=== PATIENT | female | born 1965 | race Caucasian/White ===

== ENCOUNTER 2020-08-15 11:04 | Inpatient (IN) ==
[2020-08-15] MEDS ORDERED: Dexamethasone 4 MG/ML VIAL IVP ONE (11:16)
[2020-08-15] MEDS ORDERED: Isovue-370 500 ML BOTTLE IVP ONE (11:16)
[2020-08-15 12:28] LABS: Basophils % 0.3 %; Hematocrit 40.8 % (35.3-44.9); Hemoglobin 13.2 g/dL (11.5-15.4); Immature Granulocytes % 1.1 % (0-4); Lymphocytes # 1.1 K/mcL (0.6-4.6); Lymphocytes % 15.8 %; Mean Corpuscular HGB Conc 32.4 g/dL (31.6-35.5); Mean Corpuscular Hemoglobin 29.4 pg (28.0-33.3); Mean Corpuscular Volume 90.9 fL (83.0-100.0); Mean Platelet Volume 10.9 fL (9.4-12.4); Monocytes # 0.6 K/mcL (0.0-1.3); Monocytes % 8.5 %; Neutrophils # 5.3 K/mcL (1.6-8.9); Platelet Count 170 K/mcL (140-400); Red Blood Count 4.49 M/mcL (3.82-4.97); Red Cell Distribution Width 14.2 % (11.5-14.5); Segmented Neutrophils % 74.3 %; White Blood Count 7.2 K/mcL (4.3-11.1)
[2020-08-15 12:30] LABS: Alanine Aminotransferase 23 Units/L (7-52); Albumin 3.8 g/dL (3.5-5.7); Albumin/Globulin Ratio 1.2 (1.1-2.2); Alkaline Phosphatase 74 Units/L (34-104); Aspartate Amino Transferase 20 Units/L (13-39); BUN/Creatinine Ratio 18 (6-26); Bilirubin,Direct 0.2 mg/dL (0.0-0.2); Bilirubin,Indirect 0.4 mg/dL (0.0-1.0); Bilirubin,Total 0.6 mg/dL (0.3-1.0); Blood Urea Nitrogen 16 mg/dL (6-20); C-Reactive Protein 43 mg/L (Less than 10); Calcium 8.7 mg/dL (8.6-10.3); Carbon Dioxide 30 mEq/L (23-29); Chloride 98 mEq/L (98-107); Globulin 3.3 g/dL (2.4-3.5); Glucose 132 mg/dL (70-105); Lactate Dehydrogenase 244 Units/L (140-271); Magnesium 1.8 mg/dL (1.6-2.6); Osmolality,Calculated 283 (280-300); Phosphorous 1.5 mg/dL (2.7-4.5); Potassium 3.4 mEq/L (3.5-5.1); Sodium 135 mEq/L (136-145); Total Protein 7.1 g/dL (6.4-8.9); Troponin I < 0.03 ng/mL (< 0.04); eGFR For African Americans > 60 (> 60); eGFR For Non-African Americans > 60 (> 60)
[2020-08-15 12:48] LABS: Ferritin 165 ng/mL (10-120)
[2020-08-15 12:50] LABS: INR 1.1; Prothrombin Time 12.3 Seconds (9.4-12.1)
[2020-08-15 12:53] LABS: Activated Partial Thrombo Time 20.7 Seconds (26.0-36.0)
[2020-08-15] MEDS ORDERED: Naloxone 0.4 MG/ML INJ IVP PRN (15:39)
[2020-08-15] MEDS ORDERED: Ondansetron 4 MG/2 ML VIAL IVP PRN (15:39)
[2020-08-15] MEDS ORDERED: Furosemide 40 MG/4 ML VIAL IVP ONE (15:42)
[2020-08-15] MEDS ORDERED: Benzonatate 100 MG CAPSULE PO PRN (15:42)
[2020-08-15] MEDS: carvediloL 25 MG TABLET PO SCH (18:09)
[2020-08-15] MEDS: *HR* Heparin 5,000 UNIT/ML VIAL SQ SCH (18:10)
[2020-08-15] MEDS: Spironolactone 25 MG TABLET PO SCH (18:12)
[2020-08-15] MEDS: captopriL 25 MG TABLET PO SCH (18:24)
[2020-08-15] MEDS: Acetaminophen 325 MG TABLET PO PRN (20:44)
[2020-08-16] MEDS: Acetaminophen 325 MG TABLET PO PRN ×2 (02:09→15:41)
[2020-08-16 02:34] LABS: Basophils % 0.4 %; Hematocrit 38.7 % (35.3-44.9); Hemoglobin 12.4 g/dL (11.5-15.4); Immature Granulocytes % 1.4 % (0-4); Lymphocytes # 1.2 K/mcL (0.6-4.6); Lymphocytes % 20.8 %; Mean Corpuscular Volume 90.6 fL (83.0-100.0); Mean Platelet Volume 10.5 fL (9.4-12.4); Monocytes # 0.6 K/mcL (0.0-1.3); Monocytes % 11.3 %; Neutrophils # 3.7 K/mcL (1.6-8.9); Platelet Count 157 K/mcL (140-400); Red Blood Count 4.27 M/mcL (3.82-4.97); Red Cell Distribution Width 14.3 % (11.5-14.5); Segmented Neutrophils % 66.1 %; White Blood Count 5.6 K/mcL (4.3-11.1)
[2020-08-16 03:07] LABS: BUN/Creatinine Ratio 25 (6-26); Blood Urea Nitrogen 15 mg/dL (6-20); Calcium 8.7 mg/dL (8.6-10.3); Carbon Dioxide 27 mEq/L (23-29); Chloride 100 mEq/L (98-107); Glucose 184 mg/dL (70-105); Osmolality,Calculated 282 (280-300); Phosphorous 3.5 mg/dL (2.7-4.5); Sodium 133 mEq/L (136-145); eGFR For African Americans > 60 (> 60); eGFR For Non-African Americans > 60 (> 60)
[2020-08-16] MEDS: *HR* Heparin 5,000 UNIT/ML VIAL SQ SCH (05:09)
[2020-08-16] MEDS: Aspirin Enteric Coated 81 MG Tablet PO SCH (08:02)
[2020-08-16] MEDS: carvediloL 25 MG TABLET PO SCH ×2 (08:02→17:17)
[2020-08-16] MEDS: captopriL 25 MG TABLET PO SCH ×2 (08:03→15:41)
[2020-08-16] MEDS: Spironolactone 25 MG TABLET PO SCH (08:03)
[2020-08-16] MEDS: Dexamethasone 4 MG/ML VIAL IVP SCH (08:03)
[2020-08-16] MEDS: Cholecalciferol (D-3) 1,000 UNIT (25MCG) TABLET PO SCH (08:03)
[2020-08-16] MEDS: Torsemide 20 MG TABLET PO SCH ×2 (08:04→17:18)
[2020-08-16] MEDS: Zinc Sulfate 220 MG CAPSULE PO SCH (08:05)
[2020-08-16] MEDS: *HR* Enoxaparin 40 MG/0.4 ML SYRINGE SQ SCH (17:18)
[2020-08-17] MEDS: Acetaminophen 325 MG TABLET PO PRN (04:25)
[2020-08-17] MEDS: *HR* Enoxaparin 40 MG/0.4 ML SYRINGE SQ SCH ×2 (05:13→17:15)
[2020-08-17 05:23] LABS: Basophils % 0.2 %; Hemoglobin 13.4 g/dL (11.5-15.4); Immature Granulocytes % 1.3 % (0-4); Lymphocytes # 1.8 K/mcL (0.6-4.6); Mean Corpuscular HGB Conc 33.5 g/dL (31.6-35.5); Mean Corpuscular Volume 89.5 fL (83.0-100.0); Mean Platelet Volume 10.6 fL (9.4-12.4); Monocytes # 0.9 K/mcL (0.0-1.3); Monocytes % 8.3 %; Neutrophils # 7.8 K/mcL (1.6-8.9); Platelet Count 197 K/mcL (140-400); Red Blood Count 4.47 M/mcL (3.82-4.97); Segmented Neutrophils % 73.2 %
[2020-08-17 05:41] LABS: White Blood Count 10.6 K/mcL (4.3-11.1)
[2020-08-17 05:48] LABS: BUN/Creatinine Ratio 26 (6-26); Blood Urea Nitrogen 20 mg/dL (6-20); Calcium 8.5 mg/dL (8.6-10.3); Carbon Dioxide 30 mEq/L (23-29); Chloride 94 mEq/L (98-107); Glucose 124 mg/dL (70-105); Osmolality,Calculated 280 (280-300); Potassium 3.3 mEq/L (3.5-5.1); Sodium 133 mEq/L (136-145); eGFR For African Americans > 60 (> 60); eGFR For Non-African Americans > 60 (> 60)
[2020-08-17] MEDS: Dexamethasone 4 MG/ML VIAL IVP SCH (09:03)
[2020-08-17] MEDS: carvediloL 25 MG TABLET PO SCH ×2 (09:03→17:14)
[2020-08-17] MEDS: captopriL 25 MG TABLET PO SCH ×2 (09:03→17:14)
[2020-08-17] MEDS: Cholecalciferol (D-3) 1,000 UNIT (25MCG) TABLET PO SCH (09:03)
[2020-08-17] MEDS: Zinc Sulfate 220 MG CAPSULE PO SCH (09:03)
[2020-08-17] MEDS: Spironolactone 25 MG TABLET PO SCH (09:03)
[2020-08-17] MEDS: Torsemide 20 MG TABLET PO SCH ×2 (09:08→17:14)
[2020-08-18 02:38] LABS: BUN/Creatinine Ratio 29 (6-26); Blood Urea Nitrogen 23 mg/dL (6-20); Calcium 8.7 mg/dL (8.6-10.3); Carbon Dioxide 30 mEq/L (23-29); Chloride 95 mEq/L (98-107); Glucose 159 mg/dL (70-105); Osmolality,Calculated 283 (280-300); Potassium 3.4 mEq/L (3.5-5.1); Sodium 133 mEq/L (136-145); eGFR For African Americans > 60 (> 60); eGFR For Non-African Americans > 60 (> 60)
[2020-08-18] MEDS: *HR* Enoxaparin 40 MG/0.4 ML SYRINGE SQ SCH ×2 (05:16→17:45)
[2020-08-18] MEDS: Acetaminophen 325 MG TABLET PO PRN (05:16)
[2020-08-18] MEDS ORDERED: Furosemide 40 MG/4 ML VIAL IVP ONE (07:28)
[2020-08-18] MEDS: Spironolactone 25 MG TABLET PO SCH (08:58)
[2020-08-18] MEDS: carvediloL 25 MG TABLET PO SCH ×2 (08:58→17:43)
[2020-08-18] MEDS: Cholecalciferol (D-3) 1,000 UNIT (25MCG) TABLET PO SCH (08:58)
[2020-08-18] MEDS: Zinc Sulfate 220 MG CAPSULE PO SCH (08:58)
[2020-08-18] MEDS: Aspirin Enteric Coated 81 MG Tablet PO SCH (08:58)
[2020-08-18] MEDS: captopriL 25 MG TABLET PO SCH ×2 (08:58→17:43)
[2020-08-18] MEDS: Dexamethasone 4 MG/ML VIAL IVP SCH (08:59)
[2020-08-18] MEDS: Furosemide 40 MG/4 ML VIAL IVP SCH (17:43)
[2020-08-19 01:56] LABS: Basophils # 0.1 K/mcL (0.0-0.2); Basophils % 0.8 %; Eosinophils % 0.1 %; Hematocrit 37.7 % (35.3-44.9); Hemoglobin 12.7 g/dL (11.5-15.4); Lymphocytes # 1.2 K/mcL (0.6-4.6); Lymphocytes % 13.4 %; Mean Corpuscular HGB Conc 33.7 g/dL (31.6-35.5); Mean Corpuscular Hemoglobin 29.8 pg (28.0-33.3); Mean Corpuscular Volume 88.5 fL (83.0-100.0); Mean Platelet Volume 10.3 fL (9.4-12.4); Monocytes % 10.4 %; Neutrophils # 6.5 K/mcL (1.6-8.9); Platelet Count 242 K/mcL (140-400); Red Blood Count 4.26 M/mcL (3.82-4.97); Red Cell Distribution Width 13.9 % (11.5-14.5); Segmented Neutrophils % 70.3 %; White Blood Count 9.2 K/mcL (4.3-11.1)
[2020-08-19] MEDS: Acetaminophen 325 MG TABLET PO PRN (02:06)
[2020-08-19 02:14] LABS: BUN/Creatinine Ratio 31 (6-26); Blood Urea Nitrogen 22 mg/dL (6-20); Calcium 9.2 mg/dL (8.6-10.3); Carbon Dioxide 30 mEq/L (23-29); Chloride 95 mEq/L (98-107); Glucose 168 mg/dL (70-105); Osmolality,Calculated 283 (280-300); Potassium 3.6 mEq/L (3.5-5.1); Sodium 133 mEq/L (136-145); eGFR For African Americans > 60 (> 60); eGFR For Non-African Americans > 60 (> 60)
[2020-08-19] MEDS: *HR* Enoxaparin 40 MG/0.4 ML SYRINGE SQ SCH ×2 (06:02→16:57)
[2020-08-19] MEDS: Furosemide 40 MG/4 ML VIAL IVP SCH ×2 (09:33→16:46)
[2020-08-19] MEDS: Zinc Sulfate 220 MG CAPSULE PO SCH (09:34)
[2020-08-19] MEDS: Dexamethasone 4 MG/ML VIAL IVP SCH (09:34)
[2020-08-19] MEDS: Spironolactone 25 MG TABLET PO SCH (09:34)
[2020-08-19] MEDS: carvediloL 25 MG TABLET PO SCH ×2 (09:34→16:43)
[2020-08-19] MEDS: Cholecalciferol (D-3) 1,000 UNIT (25MCG) TABLET PO SCH (09:34)
[2020-08-19] MEDS: captopriL 25 MG TABLET PO SCH ×2 (09:34→16:43)
[2020-08-19] MEDS ORDERED: Dexamethasone Sodium Phos/PF 10 MG/ML VIAL IVP ONE (11:19)
[2020-08-19] MEDS: Fluticasone Propionate Nasal 50 MCG/SPRAY BOTTLE NS SCH (21:28)
[2020-08-20 05:51] LABS: Basophils # 0.1 K/mcL (0.0-0.2); Basophils % 1.1 %; Hematocrit 39.5 % (35.3-44.9); Hemoglobin 13.2 g/dL (11.5-15.4); Immature Granulocytes % 7.3 % (0-4); Lymphocytes # 1.1 K/mcL (0.6-4.6); Lymphocytes % 11.7 %; Mean Corpuscular HGB Conc 33.4 g/dL (31.6-35.5); Mean Corpuscular Hemoglobin 29.8 pg (28.0-33.3); Mean Corpuscular Volume 89.2 fL (83.0-100.0); Mean Platelet Volume 9.8 fL (9.4-12.4); Monocytes # 1.1 K/mcL (0.0-1.3); Monocytes % 11.3 %; Neutrophils # 6.5 K/mcL (1.6-8.9); Platelet Count 258 K/mcL (140-400); Red Blood Count 4.43 M/mcL (3.82-4.97); Red Cell Distribution Width 13.8 % (11.5-14.5); Segmented Neutrophils % 68.6 %; White Blood Count 9.5 K/mcL (4.3-11.1)
[2020-08-20] MEDS: *HR* Enoxaparin 40 MG/0.4 ML SYRINGE SQ SCH ×2 (05:55→16:48)
[2020-08-20 06:05] LABS: D-Dimer 774 ng/mLFEU (0-500)
[2020-08-20 06:09] LABS: Fibrinogen 759 mg/dL (169-393)
[2020-08-20 06:13] LABS: Platelet Estimate Normal (Normal)
[2020-08-20] MEDS: Furosemide 40 MG/4 ML VIAL IVP SCH ×2 (08:23→16:48)
[2020-08-20] MEDS: Dexamethasone Sodium Phos/PF 10 MG/ML VIAL IVP SCH (08:24)
[2020-08-20] MEDS: Zinc Sulfate 220 MG CAPSULE PO SCH (08:24)
[2020-08-20] MEDS: Cholecalciferol (D-3) 1,000 UNIT (25MCG) TABLET PO SCH (08:24)
[2020-08-20] MEDS: Aspirin Enteric Coated 81 MG Tablet PO SCH (08:24)
[2020-08-20] MEDS: carvediloL 25 MG TABLET PO SCH ×2 (08:24→16:36)
[2020-08-20] MEDS: captopriL 25 MG TABLET PO SCH ×2 (08:24→16:41)
[2020-08-20] MEDS: Spironolactone 25 MG TABLET PO SCH (08:24)
[2020-08-20] MEDS: Fluticasone Propionate Nasal 50 MCG/SPRAY BOTTLE NS SCH (08:25)
[2020-08-20 09:52] LABS: BUN/Creatinine Ratio 36 (6-26); Blood Urea Nitrogen 25 mg/dL (6-20); Calcium 9.5 mg/dL (8.6-10.3); Carbon Dioxide 30 mEq/L (23-29); Chloride 95 mEq/L (98-107); Glucose 199 mg/dL (70-105); Osmolality,Calculated 288 (280-300); Potassium 3.7 mEq/L (3.5-5.1); Sodium 134 mEq/L (136-145); eGFR For African Americans > 60 (> 60); eGFR For Non-African Americans > 60 (> 60)
[2020-08-20] MEDS: Acetaminophen 325 MG TABLET PO PRN (20:25)
[2020-08-21] MEDS: *HR* Enoxaparin 40 MG/0.4 ML SYRINGE SQ SCH ×2 (05:10→17:11)
[2020-08-21 05:52] LABS: Basophils # 0.2 K/mcL (0.0-0.2); Basophils % 1.4 %; Hematocrit 39.5 % (35.3-44.9); Hemoglobin 13.3 g/dL (11.5-15.4); Immature Granulocytes % 7.2 % (0-4); Lymphocytes # 1.5 K/mcL (0.6-4.6); Lymphocytes % 13.3 %; Mean Corpuscular HGB Conc 33.7 g/dL (31.6-35.5); Mean Corpuscular Hemoglobin 29.6 pg (28.0-33.3); Mean Corpuscular Volume 87.8 fL (83.0-100.0); Monocytes # 1.1 K/mcL (0.0-1.3); Monocytes % 9.8 %; Neutrophils # 7.5 K/mcL (1.6-8.9); Platelet Count 313 K/mcL (140-400); Red Cell Distribution Width 13.6 % (11.5-14.5); Segmented Neutrophils % 68.3 %
[2020-08-21 06:12] LABS: BUN/Creatinine Ratio 42 (6-26); Blood Urea Nitrogen 30 mg/dL (6-20); Calcium 9.5 mg/dL (8.6-10.3); Carbon Dioxide 31 mEq/L (23-29); Chloride 93 mEq/L (98-107); Glucose 175 mg/dL (70-105); Magnesium 2.1 mg/dL (1.6-2.6); Osmolality,Calculated 286 (280-300); Platelet Estimate Normal (Normal); Potassium 3.7 mEq/L (3.5-5.1); Reactive Lymphocytes Present (Not Present); Sodium 133 mEq/L (136-145); Toxic Granulation Present (Not Present); eGFR For African Americans > 60 (> 60); eGFR For Non-African Americans > 60 (> 60)
[2020-08-21] MEDS: carvediloL 25 MG TABLET PO SCH ×2 (07:39→17:12)
[2020-08-21] MEDS: Spironolactone 25 MG TABLET PO SCH (07:40)
[2020-08-21] MEDS: Dexamethasone Sodium Phos/PF 10 MG/ML VIAL IVP SCH (07:40)
[2020-08-21] MEDS: captopriL 25 MG TABLET PO SCH ×2 (07:41→17:11)
[2020-08-21] MEDS: Furosemide 40 MG/4 ML VIAL IVP SCH ×2 (07:41→17:11)
[2020-08-21] MEDS: Zinc Sulfate 220 MG CAPSULE PO SCH (07:41)
[2020-08-21] MEDS: Cholecalciferol (D-3) 1,000 UNIT (25MCG) TABLET PO SCH (07:41)
[2020-08-21] MEDS: Fluticasone Propionate Nasal 50 MCG/SPRAY BOTTLE NS SCH (08:04)
[2020-08-22 04:02] LABS: Hematocrit 40.2 % (35.3-44.9); Hemoglobin 13.3 g/dL (11.5-15.4); Mean Corpuscular HGB Conc 33.1 g/dL (31.6-35.5); Mean Corpuscular Hemoglobin 29.1 pg (28.0-33.3); Platelet Count 317 K/mcL (140-400); Red Blood Count 4.57 M/mcL (3.82-4.97); Red Cell Distribution Width 13.4 % (11.5-14.5); White Blood Count 13.2 K/mcL (4.3-11.1)
[2020-08-22 04:14] LABS: Fibrinogen 603 mg/dL (169-393)
[2020-08-22 04:18] LABS: D-Dimer 549 ng/mLFEU (0-500)
[2020-08-22 04:20] LABS: BUN/Creatinine Ratio 43 (6-26); Blood Urea Nitrogen 30 mg/dL (6-20); Calcium 9.5 mg/dL (8.6-10.3); Carbon Dioxide 32 mEq/L (23-29); Chloride 93 mEq/L (98-107); Glucose 188 mg/dL (70-105); Osmolality,Calculated 287 (280-300); Potassium 3.5 mEq/L (3.5-5.1); Sodium 133 mEq/L (136-145); eGFR For African Americans > 60 (> 60); eGFR For Non-African Americans > 60 (> 60)
[2020-08-22 04:42] LABS: Lymphocytes # 2.4 K/mcL (0.6-4.6); Neutrophils # 9.2 K/mcL (1.6-8.9); Platelet Estimate Normal (Normal)
[2020-08-22 04:44] LABS: Reactive Lymphocytes Present (Not Present); Toxic Granulation Present (Not Present)
[2020-08-22] MEDS: *HR* Enoxaparin 40 MG/0.4 ML SYRINGE SQ SCH ×2 (05:12→18:00)
[2020-08-22] MEDS: Zinc Sulfate 220 MG CAPSULE PO SCH (08:09)
[2020-08-22] MEDS: Dexamethasone Sodium Phos/PF 10 MG/ML VIAL IVP SCH (08:09)
[2020-08-22] MEDS: Cholecalciferol (D-3) 1,000 UNIT (25MCG) TABLET PO SCH (08:09)
[2020-08-22] MEDS: Spironolactone 25 MG TABLET PO SCH (08:09)
[2020-08-22] MEDS: carvediloL 25 MG TABLET PO SCH ×2 (08:09→18:02)
[2020-08-22] MEDS: Aspirin Enteric Coated 81 MG Tablet PO SCH (08:09)
[2020-08-22] MEDS: captopriL 25 MG TABLET PO SCH (08:11)
[2020-08-22] MEDS: Fluticasone Propionate Nasal 50 MCG/SPRAY BOTTLE NS SCH (08:12)
[2020-08-22] MEDS: Furosemide 40 MG/4 ML VIAL IVP SCH ×2 (09:41→16:21)
[2020-08-23] MEDS: *HR* Enoxaparin 40 MG/0.4 ML SYRINGE SQ SCH ×2 (05:06→17:05)
[2020-08-23 05:43] LABS: Hematocrit 39.9 % (35.3-44.9); Hemoglobin 13.3 g/dL (11.5-15.4); Mean Corpuscular HGB Conc 33.3 g/dL (31.6-35.5); Mean Corpuscular Volume 86.9 fL (83.0-100.0); Mean Platelet Volume 9.6 fL (9.4-12.4); Platelet Count 334 K/mcL (140-400); Red Blood Count 4.59 M/mcL (3.82-4.97); Red Cell Distribution Width 13.4 % (11.5-14.5); White Blood Count 15.4 K/mcL (4.3-11.1)
[2020-08-23 06:06] LABS: BUN/Creatinine Ratio 43 (6-26); Blood Urea Nitrogen 30 mg/dL (6-20); Calcium 9.5 mg/dL (8.6-10.3); Carbon Dioxide 32 mEq/L (23-29); Chloride 94 mEq/L (98-107); Glucose 188 mg/dL (70-105); Osmolality,Calculated 289 (280-300); Potassium 3.6 mEq/L (3.5-5.1); Sodium 134 mEq/L (136-145); eGFR For African Americans > 60 (> 60); eGFR For Non-African Americans > 60 (> 60)
[2020-08-23 06:09] LABS: Lymphocytes # 1.5 K/mcL (0.6-4.6); Monocytes # 1.2 K/mcL (0.0-1.3); Platelet Estimate Normal (Normal)
[2020-08-23] MEDS: Spironolactone 25 MG TABLET PO SCH (09:54)
[2020-08-23] MEDS: Zinc Sulfate 220 MG CAPSULE PO SCH (09:54)
[2020-08-23] MEDS: Cholecalciferol (D-3) 1,000 UNIT (25MCG) TABLET PO SCH (09:54)
[2020-08-23] MEDS: Dexamethasone Sodium Phos/PF 10 MG/ML VIAL IVP SCH (09:54)
[2020-08-23] MEDS: carvediloL 25 MG TABLET PO SCH ×2 (09:54→17:05)
[2020-08-23] MEDS: Furosemide 40 MG/4 ML VIAL IVP SCH ×2 (09:55→17:05)
[2020-08-23] MEDS: Fluticasone Propionate Nasal 50 MCG/SPRAY BOTTLE NS SCH (10:16)
[2020-08-24 05:49] LABS: Hemoglobin 13.5 g/dL (11.5-15.4); Mean Corpuscular HGB Conc 33.8 g/dL (31.6-35.5); Mean Corpuscular Hemoglobin 29.7 pg (28.0-33.3); Mean Corpuscular Volume 87.9 fL (83.0-100.0); Mean Platelet Volume 9.6 fL (9.4-12.4); Platelet Count 323 K/mcL (140-400); Red Blood Count 4.55 M/mcL (3.82-4.97); Red Cell Distribution Width 13.1 % (11.5-14.5); White Blood Count 16.7 K/mcL (4.3-11.1)
[2020-08-24 06:16] LABS: Anisocytosis 1+ (Not Present); Monocytes # 0.7 K/mcL (0.0-1.3); Neutrophils # 14.4 K/mcL (1.6-8.9)
[2020-08-24 06:17] LABS: Platelet Estimate Normal (Normal); Reactive Lymphocytes Present (Not Present); Toxic Granulation Present (Not Present)
[2020-08-24] MEDS: *HR* Enoxaparin 40 MG/0.4 ML SYRINGE SQ SCH ×2 (06:57→17:31)
[2020-08-24 08:04] LABS: BUN/Creatinine Ratio 42 (6-26); Blood Urea Nitrogen 30 mg/dL (6-20); Calcium 9.4 mg/dL (8.6-10.3); Carbon Dioxide 32 mEq/L (23-29); Chloride 92 mEq/L (98-107); Glucose 217 mg/dL (70-105); Osmolality,Calculated 287 (280-300); Potassium 3.5 mEq/L (3.5-5.1); Sodium 132 mEq/L (136-145); eGFR For African Americans > 60 (> 60); eGFR For Non-African Americans > 60 (> 60)
[2020-08-24] MEDS: Spironolactone 25 MG TABLET PO SCH (09:00)
[2020-08-24] MEDS: Aspirin Enteric Coated 81 MG Tablet PO SCH (09:00)
[2020-08-24] MEDS: carvediloL 25 MG TABLET PO SCH ×2 (09:00→17:31)
[2020-08-24] MEDS: Zinc Sulfate 220 MG CAPSULE PO SCH (09:00)
[2020-08-24] MEDS: Cholecalciferol (D-3) 1,000 UNIT (25MCG) TABLET PO SCH (09:00)
[2020-08-24] MEDS: Furosemide 40 MG/4 ML VIAL IVP SCH ×2 (09:00→17:31)
[2020-08-24] MEDS: Fluticasone Propionate Nasal 50 MCG/SPRAY BOTTLE NS SCH (09:03)
[2020-08-24] MEDS: Dexamethasone Sodium Phos/PF 10 MG/ML VIAL IVP SCH (09:07)
[2020-08-24] MEDS: Nystatin SUSP 5 ML UD.LIQ PO SCH ×2 (14:46→20:19)
[2020-08-25 05:17] LABS: Hematocrit 41.5 % (35.3-44.9); Hemoglobin 13.7 g/dL (11.5-15.4); Mean Corpuscular Hemoglobin 29.3 pg (28.0-33.3); Mean Corpuscular Volume 88.9 fL (83.0-100.0); Mean Platelet Volume 9.5 fL (9.4-12.4); Platelet Count 310 K/mcL (140-400); Red Blood Count 4.67 M/mcL (3.82-4.97); Red Cell Distribution Width 13.1 % (11.5-14.5); White Blood Count 16.2 K/mcL (4.3-11.1)
[2020-08-25] MEDS: *HR* Enoxaparin 40 MG/0.4 ML SYRINGE SQ SCH ×2 (05:21→18:39)
[2020-08-25 05:37] LABS: BUN/Creatinine Ratio 43 (6-26); Blood Urea Nitrogen 30 mg/dL (6-20); Calcium 9.4 mg/dL (8.6-10.3); Carbon Dioxide 34 mEq/L (23-29); Chloride 92 mEq/L (98-107); Glucose 237 mg/dL (70-105); Osmolality,Calculated 290 (280-300); Potassium 3.4 mEq/L (3.5-5.1); Sodium 133 mEq/L (136-145); eGFR For African Americans > 60 (> 60); eGFR For Non-African Americans > 60 (> 60)
[2020-08-25 05:46] LABS: Platelet Estimate Normal (Normal); Smudge Cells Present (Not Present); Toxic Granulation Present (Not Present)
[2020-08-25 05:47] LABS: Lymphocytes # 2.3 K/mcL (0.6-4.6); Monocytes # 0.7 K/mcL (0.0-1.3); Neutrophils # 12.3 K/mcL (1.6-8.9); Reactive Lymphocytes Present (Not Present)
[2020-08-25 05:48] LABS: Anisocytosis 1+ (Not Present)
[2020-08-25] MEDS: Dexamethasone Sodium Phos/PF 10 MG/ML VIAL IVP SCH (08:45)
[2020-08-25] MEDS: carvediloL 25 MG TABLET PO SCH ×2 (08:45→18:39)
[2020-08-25] MEDS: Spironolactone 25 MG TABLET PO SCH (08:45)
[2020-08-25] MEDS: Zinc Sulfate 220 MG CAPSULE PO SCH (08:45)
[2020-08-25] MEDS: Cholecalciferol (D-3) 1,000 UNIT (25MCG) TABLET PO SCH (08:45)
[2020-08-25] MEDS: Fluticasone Propionate Nasal 50 MCG/SPRAY BOTTLE NS SCH (08:45)
[2020-08-25] MEDS: Nystatin SUSP 5 ML UD.LIQ PO SCH ×4 (08:45→21:48)
[2020-08-25] MEDS: Furosemide 40 MG/4 ML VIAL IVP SCH ×2 (08:46→18:39)
[2020-08-25] MEDS: Acetaminophen 325 MG TABLET PO PRN (22:02)
[2020-08-26 05:18] LABS: Basophils # 0.1 K/mcL (0.0-0.2); Basophils % 0.6 %; Eosinophils % 0.2 %; Hematocrit 38.2 % (35.3-44.9); Hemoglobin 12.9 g/dL (11.5-15.4); Immature Granulocytes % 3.8 % (0-4); Lymphocytes # 1.5 K/mcL (0.6-4.6); Lymphocytes % 9.4 %; Mean Corpuscular HGB Conc 33.8 g/dL (31.6-35.5); Mean Corpuscular Hemoglobin 29.5 pg (28.0-33.3); Mean Corpuscular Volume 87.2 fL (83.0-100.0); Mean Platelet Volume 10.1 fL (9.4-12.4); Monocytes # 1.6 K/mcL (0.0-1.3); Neutrophils # 12.3 K/mcL (1.6-8.9); Platelet Count 275 K/mcL (140-400); Red Blood Count 4.38 M/mcL (3.82-4.97); Red Cell Distribution Width 13.2 % (11.5-14.5); White Blood Count 16.2 K/mcL (4.3-11.1)
[2020-08-26] MEDS: *HR* Enoxaparin 40 MG/0.4 ML SYRINGE SQ SCH ×2 (05:18→16:11)
[2020-08-26] MEDS: Acetaminophen 325 MG TABLET PO PRN (05:28)
[2020-08-26 05:40] LABS: BUN/Creatinine Ratio 47 (6-26); Blood Urea Nitrogen 32 mg/dL (6-20); Calcium 9.1 mg/dL (8.6-10.3); Carbon Dioxide 30 mEq/L (23-29); Chloride 92 mEq/L (98-107); Glucose 214 mg/dL (70-105); Osmolality,Calculated 287 (280-300); Potassium 3.4 mEq/L (3.5-5.1); Sodium 132 mEq/L (136-145); eGFR For African Americans > 60 (> 60); eGFR For Non-African Americans > 60 (> 60)
[2020-08-26] MEDS: Zinc Sulfate 220 MG CAPSULE PO SCH (07:26)
[2020-08-26] MEDS: carvediloL 25 MG TABLET PO SCH ×2 (07:26→16:12)
[2020-08-26] MEDS: Cholecalciferol (D-3) 1,000 UNIT (25MCG) TABLET PO SCH (07:26)
[2020-08-26] MEDS: Spironolactone 25 MG TABLET PO SCH (07:26)
[2020-08-26] MEDS: Dexamethasone Sodium Phos/PF 10 MG/ML VIAL IVP SCH (07:26)
[2020-08-26] MEDS: Aspirin Enteric Coated 81 MG Tablet PO SCH (07:26)
[2020-08-26] MEDS: Furosemide 40 MG/4 ML VIAL IVP SCH ×2 (07:27→16:11)
[2020-08-26] MEDS: Nystatin SUSP 5 ML UD.LIQ PO SCH ×4 (07:27→20:12)
[2020-08-26] MEDS: Fluticasone Propionate Nasal 50 MCG/SPRAY BOTTLE NS SCH (10:46)
[2020-08-27 05:44] LABS: Basophils # 0.1 K/mcL (0.0-0.2); Basophils % 0.4 %; Eosinophils % 0.1 %; Immature Granulocytes % 2.7 % (0-4); Lymphocytes # 1.6 K/mcL (0.6-4.6); Lymphocytes % 11.1 %; Mean Corpuscular HGB Conc 34.2 g/dL (31.6-35.5); Mean Corpuscular Hemoglobin 29.7 pg (28.0-33.3); Mean Platelet Volume 10.4 fL (9.4-12.4); Monocytes # 1.6 K/mcL (0.0-1.3); Monocytes % 10.5 %; Neutrophils # 11.1 K/mcL (1.6-8.9); Platelet Count 276 K/mcL (140-400); Red Blood Count 4.37 M/mcL (3.82-4.97); Red Cell Distribution Width 13.2 % (11.5-14.5); Segmented Neutrophils % 75.2 %; White Blood Count 14.8 K/mcL (4.3-11.1)
[2020-08-27 06:04] LABS: BUN/Creatinine Ratio 43 (6-26); Blood Urea Nitrogen 29 mg/dL (6-20); Calcium 9.3 mg/dL (8.6-10.3); Carbon Dioxide 34 mEq/L (23-29); Chloride 92 mEq/L (98-107); Glucose 214 mg/dL (70-105); Osmolality,Calculated 288 (280-300); Potassium 3.7 mEq/L (3.5-5.1); Sodium 133 mEq/L (136-145); eGFR For African Americans > 60 (> 60); eGFR For Non-African Americans > 60 (> 60)
[2020-08-27] MEDS: *HR* Enoxaparin 40 MG/0.4 ML SYRINGE SQ SCH ×2 (06:04→17:14)
[2020-08-27] MEDS: Cholecalciferol (D-3) 1,000 UNIT (25MCG) TABLET PO SCH (09:50)
[2020-08-27] MEDS: carvediloL 25 MG TABLET PO SCH ×2 (09:50→17:14)
[2020-08-27] MEDS: Spironolactone 25 MG TABLET PO SCH (09:50)
[2020-08-27] MEDS: Zinc Sulfate 220 MG CAPSULE PO SCH (09:50)
[2020-08-27] MEDS: Nystatin SUSP 5 ML UD.LIQ PO SCH ×3 (09:53→17:11)
[2020-08-27] MEDS: Dexamethasone Sodium Phos/PF 10 MG/ML VIAL IVP SCH (09:53)
[2020-08-27] MEDS: Fluticasone Propionate Nasal 50 MCG/SPRAY BOTTLE NS SCH (09:54)
[2020-08-27] MEDS: Furosemide 40 MG/4 ML VIAL IVP SCH ×2 (09:56→17:14)
[2020-08-28] MEDS: Nystatin SUSP 5 ML UD.LIQ PO SCH ×2 (03:36→08:44)
[2020-08-28] MEDS: *HR* Enoxaparin 40 MG/0.4 ML SYRINGE SQ SCH (05:44)
[2020-08-28 06:42] LABS: Basophils # 0.1 K/mcL (0.0-0.2); Basophils % 0.4 %; Eosinophils % 0.1 %; Hematocrit 38.5 % (35.3-44.9); Lymphocytes # 1.7 K/mcL (0.6-4.6); Lymphocytes % 11.8 %; Mean Corpuscular HGB Conc 33.8 g/dL (31.6-35.5); Mean Corpuscular Hemoglobin 29.3 pg (28.0-33.3); Mean Corpuscular Volume 86.7 fL (83.0-100.0); Mean Platelet Volume 10.1 fL (9.4-12.4); Monocytes # 1.7 K/mcL (0.0-1.3); Monocytes % 11.7 %; Neutrophils # 10.6 K/mcL (1.6-8.9); Platelet Count 253 K/mcL (140-400); Red Blood Count 4.44 M/mcL (3.82-4.97); Red Cell Distribution Width 13.2 % (11.5-14.5); White Blood Count 14.3 K/mcL (4.3-11.1)
[2020-08-28 07:03] LABS: BUN/Creatinine Ratio 39 (6-26); Blood Urea Nitrogen 26 mg/dL (6-20); Calcium 9.2 mg/dL (8.6-10.3); Carbon Dioxide 33 mEq/L (23-29); Chloride 91 mEq/L (98-107); Glucose 194 mg/dL (70-105); Osmolality,Calculated 286 (280-300); Sodium 133 mEq/L (136-145); eGFR For African Americans > 60 (> 60); eGFR For Non-African Americans > 60 (> 60)
[2020-08-28] MEDS: Furosemide 40 MG/4 ML VIAL IVP SCH ×2 (08:42→09:03)
[2020-08-28] MEDS: Aspirin Enteric Coated 81 MG Tablet PO SCH (08:43)
[2020-08-28] MEDS: Zinc Sulfate 220 MG CAPSULE PO SCH (08:43)
[2020-08-28] MEDS: Cholecalciferol (D-3) 1,000 UNIT (25MCG) TABLET PO SCH (08:43)
[2020-08-28] MEDS: carvediloL 25 MG TABLET PO SCH (08:43)
[2020-08-28] MEDS: Spironolactone 25 MG TABLET PO SCH ×2 (08:44→09:05)
[2020-08-28] MEDS: Dexamethasone Sodium Phos/PF 10 MG/ML VIAL IVP SCH (08:44)
[2020-08-28] MEDS: Fluticasone Propionate Nasal 50 MCG/SPRAY BOTTLE NS SCH (08:45)
[2020-08-28 11:36] VITALS: BP 102/60
== END 2020-08-28 18:45 | disposition home or self-care (01) | DRG 177 ==
LOC: EMEROOARM 11:04 → 2NENU 16:00 → SUATTDRO 16:00 → 2NENU 16:27
PROVIDERS: ADMIT Internal Medicine; ATTEND Student in an Organized Health Care Education/Training Program